=== PATIENT | female | born 1980 | race Caucasian/White ===

== ENCOUNTER 2017-02-10 14:25 | Emergency (ER) | payer OTHER ==
[2017-02-10 14:38] VITALS: BP 145/91; PULSE 83; O2SAT 97
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
== END 2017-02-10 15:15 | disposition left against medical advice (07) ==
LOC: ED 14:25
DX: G89.4 Chronic pain syndrome (principal); B35.3 Tinea pedis; M79.671 Pain in right foot
CPT/HCPCS: 99281